=== PATIENT | male | born 1980 | race Caucasian/White ===

== ENCOUNTER 2018-08-09 16:34 | Emergency (ER) | payer OTHER ==
[~2018-08-09] VITALS: Ht 182.9 cm; Wt 71.3 kg
[2018-08-09 16:56] VITALS: BP 134/76
[2018-08-09] MEDS ORDERED: SULF1TAB49 PO (18:27)
[2018-08-09] MEDS ORDERED: sulfamethoxazole/trimethoprim DS (800/160mg) tablet PO ONE (18:30)
[2018-08-09] MEDS ORDERED: ibuprofen tablet 400 MG TABLET PO ONE (18:30)
[2018-08-09] MEDS ORDERED: acetaminophen 325mg tablet PO ONE (18:30)
== END 2018-08-09 18:50 | disposition home or self-care (01) ==
LOC: ER 16:36 → EDBD 16:36 → ER 18:50
DX: L03.116 Cellulitis of left lower limb (principal)
CPT/HCPCS: 73630; 99284